=== PATIENT | male | born 1970 | race Caucasian/White ===

== ENCOUNTER 2018-05-25 05:37 | Emergency (ER) | payer OTHER, SELFPAY ==
[2018-05-25 05:38] VITALS: BP 156/102; PULSE 52; RESP 16; TEMP 36.6; O2SAT 98; BMI 30.4
--- NOTE | 2018-05-25 05:55 | RAD_ITS ---
STUDY: X-RAY - LEFT HAND REASON FOR EXAM: Male, 47 years old. Smashed hand at work. Middle finger laceration. TECHNIQUE: view(s) of the hand. COMPARISON: None. FINDINGS: Normal radiocarpal articulation. Normal distal radioulnar joint. Normal visualized carpal bones. Normal carpal articulations There is mild degenerative arthrosis of the carpometacarpal (CMC) articulation of the thumb. Normal second through fifth carpometacarpal joints. Normal metacarpi. Normal metacarpophalangeal joint of the thumb. Normal interphalangeal joint of the thumb. Normal proximal and distal phalanges of the thumb. Normal metacarpophalangeal joints of the second through fifth fingers. Normal proximal and distal interphalangeal joints of the second through fifth fingers. There are transverse lucencies overlying the distal metaphyses of the middle phalanges of the third and fourth fingers. As seen on oblique view, there is focal cortical discontinuity along the posterior medial margin of the fourth middle phalanx, confirming presence of fracture. The findings are consistent with acute traumatic fractures, nondisplaced and probably incomplete. The soft tissue structures are unremarkable. RAD/Hand Min 3 Views IMPRESSION: Nondisplaced incomplete fractures of the distal metaphyses of the middle phalanges of the third and fourth fingers. Electronically Signed: Amaury Matute MD at 6:43 EST , Service support ,
[2018-05-25] MEDS: Naproxen 500 MG Tablet PO (06:05)
--- NOTE | 2018-05-25 06:57 | ED.DCSUM_ITS ---
- ER Visit Summary Date of Service: 05/25/18 Chief Complaint: Left hand injury. History of Present Illness: The patient is a [address] Pabon. He is left-hand dominant. Reports that just prior to coming emergency department was pulling out a steel frame and it fell. He attempted to catch this and it crushed his finger between a frame and the desk. Reports he has a throbbing pain to his index, middle, and ring fingers that is 7 out of 10 at worst and 5- 10 currently. Is worsened by movement and relieved by rest. He denies any paresthesias distally. His tetanus is up-to-date. Physical Examination: Vitals: Stable. Afebrile. General: Well-nourished and well-developed. Head: Normocephalic atraumatic. Neck: Supple, no lymphadenopathy. No JVD. Nontender. Cardiovascular: Regular rate and rhythm. No murmurs. Respiratory: No respiratory distress. Clear to auscultation bilaterally. Abdominal: Soft, nontender, nondistended, normal bowel sounds. No guarding, rebound, or peritoneal signs. Back: Nontender. Extremities: Mild tenderness palpation to the middle phalanx of the index finger. Moderate tenderness palpation to the middle phalanx of the brain and middle fingers. There is a 1 cm superficial laceration on the back of the middle phalanx of his middle finger. There is no active bleeding. He is neurovascular intact distal to these injuries.. Skin: Normal color, no rash. Neurologic: Alert and oriented ?3. Cranial nerves II through XII are intact. N ormal strength and sensation. Psych: Normal affect. Test Results: X-ray shows him to have fracture of the middle phalanx of his third and fourth fingers that is nondisplaced. Emergency Department Course and Treatment: Had a prolonged discussion the patient about treatment options for the laceration. He is opted to let this heal by secondary intention. I feel that a reasonable course of action. He was treated with naproxen, Keflex, aluminum foam splint here. Treatment Plan: Patient will be discharged with Keflex, naproxen, and Percocet. Instructed to follow-up with estrella zhu in 2 days for a wound check. Follow-up Dr. Dawson in 1 week for further evaluation of his finger fractures. Return to the emergency department for any worsening symptoms. Disposition: To home in improved and stable condition. Impression: 1. Fracture middle phalanx left third and fourth fingers. 2. Laceration left middle finger, 1 cm, not repaired. This note was generated with [employer] dictation software. It may contain incorrect words, spelling, and punctuation that were not noted in review of the chart prior to signing ED Disposition - Plan for ED Patient: Disposition: Home or Assisted Living Chief Complaint: Upper Extremity Injury Instructions: ED Fx Finger Open Prescriptions: Oxycodone HCl/Acetaminophen [Percocet 5/325] 1 tablet PO Q6H PRN PRN 3 Days #12 tablet PRN Reason: Pain Cephalexin [Keflex] 500 mg PO Q6 #28 capsule Naproxen [Naprosyn] 500 mg PO BID #14 tablet [facility]: [facility] - 2 Days for wound check Benigno Dawson DO [STAFF PHYSICIAN] - 1 Week
[2018-05-25] MEDS: Cephalexin 250 MG Capsule 500 MG PO (07:47)
[2018-05-25 07:55] VITALS: PULSE 68; RESP 16; O2SAT 98
== END 2018-05-25 07:57 | disposition home or self-care (01) ==
PROVIDERS: Emergency Provider Emergency Medicine; Family Provider Family Medicine; PCP Family Medicine
DX: S62.653A Nondisplaced fracture of middle phalanx of left middle finger, initial encounter for closed fracture (principal); S62.655A Nondisplaced fracture of middle phalanx of left ring finger, initial encounter for closed fracture; S61.213A Laceration without foreign body of left middle finger without damage to nail, initial encounter; W23.0XXA Caught, crushed, jammed, or pinched between moving objects, initial encounter; Y93.9 Activity, unspecified; Y92.89 Other specified places as the place of occurrence of the external cause; Y99.8 Other external cause status
CPT/HCPCS: 73130; 99285